=== PATIENT | female | born 1985 | race Caucasian/White ===

== ENCOUNTER 2018-05-21 08:43 | Day surgery (SDC) | payer OTHER ==
[2018-05-21] MEDS ORDERED: POLY119PG PO (11:43)
[2018-05-21] MEDS ORDERED: PERCOCET 5-3251 EACH PO (11:44)
[2018-05-21] MEDS ORDERED: SURFAK240 M1 PO (11:44)
[2018-05-21] MEDS ORDERED: NEURONTIN600 MG PO (11:45)
[2018-05-21] MEDS ORDERED: PROTONIX40 MG PO (11:45)
== END 2018-05-21 16:20 | disposition home or self-care (01) ==
LOC: CIR.AMB 08:43
DX: K43.6 Other and unspecified ventral hernia with obstruction, without gangrene (principal); M62.08 Separation of muscle (nontraumatic), other site; K43.0 Incisional hernia with obstruction, without gangrene

== ENCOUNTER 2022-12-07 11:28 | Emergency (ER) | payer OTHER ==
[~2022-12-07] VITALS: Ht 152.4 cm; Wt 56.7 kg
[~2022-12-07 11:28] MED LIST: NEURONTIN600 MG PO; PERCOCET 5-3251 EACH PO; POLY119PG PO; PROTONIX40 MG PO; SURFAK240 M1 PO
== END 2022-12-07 15:16 | disposition home or self-care (01) ==
LOC: ER 11:28
DX: B34.0 Adenovirus infection, unspecified (principal); Z91.013 Allergy to seafood; Z20.822 Contact with and (suspected) exposure to COVID-19